=== PATIENT | female | born 1965 | race Caucasian/White ===

== ENCOUNTER 2017-07-10 10:37 | Emergency (ER) | payer OTHER ==
[~2017-07-10] VITALS: Ht 165.1 cm; Wt 84.0 kg
[~2017-07-10 10:37] MED LIST: CALTRATE PLUS1 EACH PO; CENTRUM COMPLE1 EACH PO; CYMBALTA60 MG PO; EVOXAC30 MG PO; LYRICA50 MG PO; NEXIUM40 MG PO; NIACIN250 M1 PO; PLAQUENIL200 MG PO; TRAMADOL HCL50 MG PO
[2017-07-10] MEDS ORDERED: FLEXERIL5 MG PO (12:52)
[2017-07-10 12:59] VITALS: BP 112/82
== END 2017-07-10 13:06 | disposition home or self-care (01) ==
LOC: EME 10:37
DX: M62.838 Other muscle spasm (principal); K21.9 Gastro-esophageal reflux disease without esophagitis; J45.909 Unspecified asthma, uncomplicated; M79.7 Fibromyalgia; Z96.641 Presence of right artificial hip joint
CPT/HCPCS: 93971; 99281; 99283